=== PATIENT | male | born 1955 | race Caucasian/White ===

== ENCOUNTER 2016-11-14 10:55 | Emergency (ER) | payer OTHER ==
[~2016-11-14] VITALS: Ht 182.9 cm; Wt 113.4 kg
[2016-11-14 10:59] VITALS: BP 133/86
[2016-11-14] MEDS ORDERED: PROSCAR 5MG TABL5 MG PO (11:05)
[2016-11-14] MEDS ORDERED: ASPIR 8181 MG PER TUBE (11:05)
[2016-11-14] MEDS ORDERED: ATORVASTATIN CA40 MG PO (11:05)
[2016-11-14] MEDS ORDERED: PRINIVIL10 MG PO (11:05)
[2016-11-14] MEDS ORDERED: KEFLEX500 MG PO (11:35)
== END 2016-11-14 11:45 | disposition home or self-care (01) ==
LOC: ER 10:55
DX: S81.812A Laceration without foreign body, left lower leg, initial encounter (principal); I10 Essential (primary) hypertension; E78.00 Pure hypercholesterolemia, unspecified; Z96.651 Presence of right artificial knee joint; W26.8XXA Contact with other sharp object(s), not elsewhere classified, initial encounter; Y93.89 Activity, other specified; Y92.091 Bathroom in other non-institutional residence as the place of occurrence of the external cause; Y99.8 Other external cause status